=== PATIENT | male | born 1995 ===

== ENCOUNTER 2019-06-18 18:32 | Emergency (ER) | payer SELFPAY ==
[~2019-06-18] VITALS: Ht 177.8 cm; Wt 90.7 kg
[2019-06-18 18:45] VITALS: BP 126/85
== END 2019-06-18 22:05 | disposition left against medical advice (07) ==
LOC: ER 18:39
DX: R10.9 Unspecified abdominal pain (principal); R11.2 Nausea with vomiting, unspecified; Z53.21 Procedure and treatment not carried out due to patient leaving prior to being seen by health care provider